=== PATIENT | female | born 1950 | race Caucasian/White ===

== ENCOUNTER 2022-03-30 00:18 | Day surgery (SDC) | payer MEDICARE, SELFPAY ==
[2022-03-21 12:43] VITALS: BMI 17.4
--- NOTE | 2022-03-29 20:32 | PM.HPGS ---
History of Present Illness History of Present Illness Consent: Risks, benefits, and alternatives have been discussed and questions answered. Patient agrees to proceed with procedure. Chief complaint: GERD, neoplasm screening Narrative: Leelee Singh is a 71 year old female Referred because of recent suspected gastrointestinal bleeding and also for colon cancer screening. She has a history of having an ulcer a few years ago. Recently she had black tarry stools for 3 or 4 days. She had been on PPI in the past but no longer is. She has use a baby aspirin at times but does not use NSAIDs. Her last colonoscopy was greater than 10 years ago. There is a family history of colon cancer in aunts and uncles on both sides of her family. Review of Systems Review of Systems: All systems reviewed & are unremarkable except as noted in HPI and below PMFSH Past Medical History Medical History Acid reflux Body mass index (BMI) of 19 or less in adult (03/28/17) Chronic GERD (12/04/16) Colon cancer screening Cyst of vagina (01/07/17) Encounter for gynecological examination (general) (routine) without abnormal findings Encounter for preventative adult health care examination (12/21/16) History of vaginal delivery x 2 Hormone replacement therapy (postmenopausal) (12/04/16) Hx of gastric ulcer Hx of intestinal obstruction Labial cyst Melena Postoperative visit Screening mammogram, encounter for Skin cancer Underweight Surgical History Surgical History H/O: hysterectomy History of appendectomy History of bowel resection Family History Family History Other Carcinoma of colon Social History Social History Smoking packs per day: 1 Smoking cigarettes per day: 20.0 Years smoked: 10 Smoking pack-years: 10.00 Smoking status: Former smoker Tobacco type: cigarettes Second hand tobacco smoke exposure: No Smoking end date: 04/15/84 Alcohol intake: never Substance use: never Substance use type: does not use Gender identity (if verbalized by the patient): Female Sexual Orientation (if Verbalized by the Patient): Straight or Heterosexual Spiritual care concerns: No Meds Home Medications and Allergies Home Medications Medication Instructions Recorded Confirmed Type estradiol 0.01% (0.1 mg/gram) 1 g vaginal DAILY #42.5 grams 07/05/21 03/21/22 Rx vaginal cream (Estrace) estradiol 0.025 mg/24 hr 1 patch transdermal 2XW 07/05/21 03/21/22 History semiweekly transdermal patch multivitamin (Daily Multi-Vitamin 1 tablet PO DAILY 07/05/21 03/21/22 History tablet) omeprazole 40 mg capsule,delayed 40 mg PO DAILY #30 caps 03/01/22 03/21/22 Rx release sucralfate 1 gram tablet 1 g PO HS 03/01/22 03/21/22 History Allergies Allergy/AdvReac Type Severity Reaction Status Date / Time Sulfa (Sulfonamide Allergy Mild Itching Verified 03/30/22 11:37 Antibiotics) Exam Const: General: alert Orientation/consciousness: patient oriented x3 Resp: Auscultation: clear to auscultation bilaterally Cardio: Rhythm: regular rhythm GI: GI Palp: Yes Soft to palpation and No Tenderness to palpation present (GI) Neuro: General: patient oriented x3 Assessment and Plan Assessment and plan (1) Melena: Code(s): K92.1 - Melena Status: Acute Assessment and Plan: EGD with possible biopsy or dilatation or cautery. (2) Colon cancer screening: Code(s): Z12.11 - Encounter for screening for malignant neoplasm of colon Status: Acute Assessment and Plan: Colonoscopy with possible biopsy or polypectomy or cautery or injection of substances.
[2022-03-30 11:38] VITALS: BP 104/62; PULSE 81; RESP 19; TEMP 36.6; O2SAT 100
[2022-03-30] MEDS: LACTATED RINGERS 1,000 ML 150 ML IV CONT (11:53)
--- NOTE | 2022-03-30 12:47 | WPDANESEPPF ---
Anes - Initial Pre Proc Eval Procedure: Operation Date: 03/30/22 12:30 Proposed Procedures p Esophagogastroduodenoscopy & Screening Colonoscopy - David Oneill MD Date/Time: 03/30/22 12:47 Surgeon: Dvaid Oneill MD Pre Op Diagnosis: GERD, neoplasm screening Patient Data Age: 71 Gender: F Height: 1.63 m Weight: 41 kg Last Vital Signs Temp 98 F 03/30/22 11:38 Pulse 81 03/30/22 11:38 Resp 19 03/30/22 11:38 BP 104/62 03/30/22 11:38 Pulse Ox 100 03/30/22 11:38 O2 Del Method Room Air 03/30/22 11:38 Allergies Allergy/AdvReac Type Severity Reaction Status Date / Time Sulfa (Sulfonamide Allergy Mild Itching Verified 03/30/22 11:37 Antibiotics) Home Medications Medication Instructions Recorded Confirmed Type estradiol 0.01% (0.1 mg/gram) 1 g vaginal DAILY #42.5 grams 07/05/21 03/21/22 Rx vaginal cream (Estrace) estradiol 0.025 mg/24 hr 1 patch transdermal 2XW 07/05/21 03/21/22 History semiweekly transdermal patch multivitamin (Daily Multi-Vitamin 1 tablet PO DAILY 07/05/21 03/21/22 History tablet) omeprazole 40 mg capsule,delayed 40 mg PO DAILY #30 caps 03/01/22 03/21/22 Rx release sucralfate 1 gram tablet 1 g PO HS 03/01/22 03/21/22 History Patient hx anesthesia problems: none Family hx anesthesia problems: none Results Review: All pre-operative results and documents have been reviewed as part of the pre-operative evaluation. [facility] Past Medical History Medical History (Updated 03/01/22 @ 11:44 by Sarah Kemp, ROSIE) Acid reflux Body mass index (BMI) of 19 or less in adult (03/28/17) Chronic GERD (12/04/16) Colon cancer screening Cyst of vagina (01/07/17) Encounter for gynecological examination (general) (routine) without abnormal findings Encounter for preventative adult health care examination (12/21/16) History of vaginal delivery x 2 Hormone replacement therapy (postmenopausal) (12/04/16) Hx of gastric ulcer Hx of intestinal obstruction Labial cyst Melena Postoperative visit Screening mammogram, encounter for Skin cancer Underweight Surgical History Surgical History H/O: hysterectomy History of appendectomy History of bowel resection Family History Family History Other Carcinoma of colon Social History Social History Smoking packs per day: 1 Smoking cigarettes per day: 20.0 Years smoked: 10 Smoking pack-years: 10.00 Smoking status: Former smoker Tobacco type: cigarettes Second hand tobacco smoke exposure: No Smoking end date: 04/15/84 Alcohol intake: never Substance use: never Substance use type: does not use Living arrangements: with family Gender identity (if verbalized by the patient): Female Sexual Orientation (if Verbalized by the Patient): Straight or Heterosexual Spiritual care concerns: No Anes - Eval Final PreProcedure Day of Procedure 03/30/22 12:47 Patient weight: normal Heart: regular rate and rhythm Lungs: clear to auscultation Airway: Mallampati scale class II Neurological: alert and oriented Last oral intake: >/= 8 hours ASA classification: II Emergent: no Anesthetic plan: proceed Anesthesia type and monitoring: general GIVS and standard monitoring Results Review: All pre-operative results and documents have been reviewed as part of the pre-operative evaluation. Informed Consent: The patient's anesthetic plan and its attendant risks and benefits were discussed with the patient/family/POA. Questions were solicited and answers provided to the satisfaction of the patient/family/POA.
--- NOTE | 2022-03-30 13:13 | SUR.OPER ---
EGD: [id number] COLON: [id number]
[2022-03-30 13:29] VITALS: BP 100/55; PULSE 66; RESP 16; O2SAT 100
[2022-03-30 13:39] VITALS: BP 116/62; PULSE 74; RESP 18; O2SAT 100
[2022-03-30 13:49] VITALS: BP 122/68; PULSE 64; RESP 18; O2SAT 100
== END 2022-03-30 14:02 | disposition home or self-care (01) ==
PROVIDERS: PCP Physician Assistant Medical; Visit Provider Internal Medicine Gastroenterology
PROC: 0DJ08ZZ Inspection of Upper Intestinal Tract, Via Natural or Artificial Opening Endoscopic (ICD-10-PCS; CPT 43235; principal; 2022-03-30 12:30)
DX: Z12.11 Encounter for screening for malignant neoplasm of colon (principal); K92.1 Melena; K21.9 Gastro-esophageal reflux disease without esophagitis; Z80.0 Family history of malignant neoplasm of digestive organs; Z87.891 Personal history of nicotine dependence
CPT/HCPCS: 43239; G0105; 87081; J2704; J7120

== ENCOUNTER 2022-04-12 08:47 | Outpatient (CLI) | payer MEDICARE, SELFPAY ==
--- NOTE | ~2022-04-12 | US_ITS ---
Abdominal Sonogram: Real-time sonographic imaging of the abdomen was performed. Clinical History: Abdominal pain Findings: The liver appears normal with no evidence of mass lesion or bile duct dilatation. Main por adiel vein demonstrates normal direction of flow. The spleen is normal in size without evidence of foca l lesion. The gallbladder is well distended, and appears normal with no evidence of gallstone or wal l thickening. The common bile duct measures less than 3 mm. The visualized pancreas, aorta, and IVC are unremarkable. The right kidney measures 10.1 cm in length and the left kidney measures 10.4 cm. There is no hydronephrosis or renal calculus. Impression: Unremarkable abdominal ultrasound. Reviewed, dictated and finalized at location . MOTION ANALYST Impression: Unremarkable abdominal ultrasound.
== END 2022-04-12 08:48 | disposition home or self-care (01) ==
PROVIDERS: PCP Physician Assistant Medical; Visit Provider Internal Medicine Gastroenterology
DX: R10.9 Unspecified abdominal pain (principal)
CPT/HCPCS: 76700

== ENCOUNTER 2022-06-12 09:53 | Outpatient (CLI) | payer MEDICARE, SELFPAY ==
--- NOTE | ~2022-06-12 | MM_ITS ---
EXAMINATION: MM screening basim BI w vicki HISTORY: Screening mammogram TECHNIQUE: Craniocaudal and mediolateral oblique 3-D tomosynthesis images were obtained and synthetic 2-D images were generated. CAD analysis was submitted and interpreted. COMPARISON: No prior mammogram is available for comparison at this institution. BREAST PARENCHYMAL COMPOSITION: The breasts are heterogeneously dense, which may obscure small masses . FINDINGS: Asymmetric oval to approximately 1.4 cm opacity in the anterior outer mid left breast. Diag nostic left mammogram and left breast ultrasound examination are recommended. No suspicious mass, architectural distortion, malignant calcification, skin thickening or retraction of either breast is is noted otherwise. IMPRESSION: 1. 1.4 cm asymmetric opacity in the outer mid left breast 2. Diagnostic left mammogram and left breast ultrasound examination are recommended BI-RADS Category 0: Incomplete: Needs additional imaging evaluation. Reviewed, dictated and finalized at location A. LOGIST IMPRESSION: 1. 1.4 cm asymmetric opacity in the outer mid left breast 2. Diagnostic left mammogram and left breast ultrasound examination are recomme nded BI-RADS Category 0: Incomplete: Needs additional imaging evaluation.
== END 2022-06-12 09:54 | disposition home or self-care (01) ==
PROVIDERS: PCP Physician Assistant Medical; Visit Provider Student in an Organized Health Care Education/Training Program
DX: Z12.31 Encounter for screening mammogram for malignant neoplasm of breast (principal); R92.8 Other abnormal and inconclusive findings on diagnostic imaging of breast
CPT/HCPCS: 77063; 77067

== ENCOUNTER 2022-06-26 12:11 | Outpatient (CLI) | payer MEDICARE, SELFPAY ==
--- NOTE | ~2022-06-26 | MMUS_ITS ---
EXAMINATION: MM diagnostic basim BI w vicki, US breast LT limited HISTORY: Bilateral mammographic abnormalities reported on May 17, 20272022, including possible n ew architectural distortion in the right breast and 14.8 mm lower outer left breast mass TECHNIQUE: Additional 3-D tomosynthesis images of both breasts were performed and synthetic 2-D image s were generated. CAD analysis was submitted and interpreted. High resolution . breast ultrasound was performed. COMPARISON: June 12, 2022 bilateral screening mammogram 04/13/2020 outside bilateral screening mammogram (left MLO view is not provided. FINDINGS: MAMMOGRAPHIC FINDINGS: Approximately 10 x 16 mm circumscribed partially fatty lesion with soft tissue capsule is suggested a nteriorly in the inferolateral left subareolar area. Benign lipoma or hamartoma is suggested. This ap pears stable when comparing the prior CC Tomosynthesis images of 04/13/2020. No architectural distortion is reproduced on the right on disease supplemental views. ULTRASOUND: Targeted imaging at the left breast inferior subareolar area does not reveal any suspicious solid les ion or shadowing. IMPRESSION: 1. Benign finding 2. Routine annual mammographic screening is recommended BI-RADS Category 2: Benign finding(s). Reviewed, dictated and finalized at location A. IMPRESSION: 1. Benign finding 2. Routine annual mammographic screening is recommended BI-RADS Category 2: Benign finding(s).
== END 2022-06-26 12:12 | disposition home or self-care (01) ==
PROVIDERS: PCP Physician Assistant Medical; Visit Provider Obstetrics & Gynecology
DX: R92.8 Other abnormal and inconclusive findings on diagnostic imaging of breast (principal)
CPT/HCPCS: 76642; 77062; 77066; G0279

== ENCOUNTER 2023-11-05 09:09 | Outpatient (CLI) | payer MEDICARE, SELFPAY ==
--- NOTE | ~2023-11-05 | DEXA_ITS ---
Bone Density Report Name: HUSSEIN CHAPA Age: 72 Sex: Female Ethnicity: White Date of : 1950 Indication: postmenopausal; screening for osteoporosis; history of glucocorticoids; cancer; hysterectomy; Referring Provider: SHIRLEY, BROOKS Aguirre Study: Bone densitometry was performed. Exam Date: November 05, 2023 Accession number: [id number] Bone Density: Region BMD T-score Z-score Classification AP Spine(L1-L4) 0.916 -1.2 1.1 Osteopenia Femoral Neck (Left) 0.609 -2.2 -0.2 Osteopenia Total Hip (Left) 0.732 -1.7 -0.1 Osteopenia Femoral Neck (Right) 0.591 -2.3 -0.4 Osteopenia Total Hip (Right) 0.734 -1.7 0.0 Osteopenia Total Hip Mean 0.733 -1.7 -0.1 Osteopenia World Health Organization criteria for BMD impression classify patients as: Normal (T-score at or above -1.0), Osteopenia (T-score between -1.0 and -2.5), or Osteoporosis (T-score at or below -2.5). 10-year Fracture Risk(1): Major Osteoporotic Fracture 17% Hip Fracture 5.3% Reported Risk Factors: [place] (), Neck BMD=0.591, BMI=16.9, glucocorticoids (1) FRAX(R) Version 3.08. Fracture probability calculated for an untreated patient. Fracture probability may be lower if the patient has received treatment. Clinical Information Provided by Patient: Has taken Glucocorticoids Has used the following medications: Vitamin D, Calcium Has the following medical conditions: Cancer, Hysterectomy Patient maximum height was 64 Menopause Age: 50 No regular weight bearing exercise Drinks caffeinated beverages Onset of menses at age 15 Number of children 2 Impression: The patient has low bone mass, based on the Right Femoral Neck T-score. The patient has an estimated ten-year risk of hip fracture of 5.3% and an estimated ten-year risk of major fracture of 17%, based on the WHO FRAX algorithm. The patient has risk factors, including: history of glucocorticoid therapy. Discussion: BONE DENSITY IS LOW AT ONE OR MORE SKELETAL SITES. THE PATIENT'S BMD AND CLINICAL RISK FACTORS CONTRIBUTE TO THIS PATIENT'S INCREASED RISK OF FRACTURE. This patient's lowest T-score is low at one or more skeletal sites. It meets the World Health Organization's (WHO) criteria for ?low bone mass? (T-score between -1.0 and -2.5). The patient's 10-year risk of hip fracture as calculated by FRAX exceeds the threshold where pharmacological therapy is recommended by the National Osteoporosis Foundation (NOF). However, all treatment decisions require clinical judgment and consideration of individual patient factors, including patient preferences, comorbidities, previous drug use, risk factors not captured in the FRAX model (e.g., frailty, falls, vitamin D deficiency, increased bone turnover, interval significant decline in bone density) and possible under or overestimat
--- NOTE | ~2023-11-05 | MM_ITS ---
EXAMINATION: MM screening basim BI w vicki HISTORY: Screening TECHNIQUE: Craniocaudal and mediolateral oblique 3-D tomosynthesis images were obtained and synthetic 2-D images were generated. CAD analysis was submitted and interpreted. COMPARISON: Comparison to multiple prior studies sequentially, with oldest reviewed study dated 03/17. BREAST PARENCHYMAL COMPOSITION: Not dense: There are scattered areas of fibroglandular density. FINDINGS: There is no evidence of suspicious mass, calcification, or architectural distortion to sugg est malignancy in either breast. There has been no suspicious interval change. IMPRESSION: 1. No mammographic evidence of malignancy. 2. Recommend routine screening mammography in one year. BI-RADS Category 1: Negative Reviewed, dictated and finalized at location B.
== END 2023-11-05 09:10 | disposition home or self-care (01) ==
LOC: ANHIMG 09:12
PROVIDERS: PCP Physician Assistant Medical; Visit Provider Registered Nurse
DX: Z12.31 Encounter for screening mammogram for malignant neoplasm of breast (principal); M85.89 Other specified disorders of bone density and structure, multiple sites; Z78.0 Asymptomatic menopausal state; Z79.890 Hormone replacement therapy
CPT/HCPCS: 77063; 77067; 77080

== ENCOUNTER 2023-12-11 08:31 | Outpatient (CLI) | payer MEDICARE, SELFPAY ==
[2023-12-11 09:01] LABS: Alanine Aminotransferase 26 U/L (6-35); Albumin Level 4.3 g/dL (3.5-5.1); Alkaline Phosphatase 65 U/L (38-126); Anion Gap 7 mmol/L (4-12); Aspartate Amino Transferase 40 U/L (14-36); Bilirubin,Total 0.2 mg/dL (0.2-1.3); Blood Urea Nitrogen 19 mg/dL (7-17); Calcium 9.5 mg/dL (8.4-10.2); Carbon Dioxide 30 mmol/L (22-30); Chloride 102 mmol/L (98-107); Estimated Glomerular Filt Rate > 60; Glucose 79 mg/dL (65-110); Potassium 4.1 mmol/L (3.4-5.0); Sodium 139 mmol/L (137-145)
[2023-12-11 09:14] LABS: Vitamin D 25 Hydroxy 74.8 ng/mL
== END 2023-12-11 08:32 | disposition home or self-care (01) ==
PROVIDERS: PCP Physician Assistant Medical; Visit Provider Nurse Practitioner Obstetrics & Gynecology
DX: M85.80 Other specified disorders of bone density and structure, unspecified site (principal)
CPT/HCPCS: 36415; 80053; 82306